=== PATIENT | female | born 1945 | race Hispanic/Latino ===

== ENCOUNTER 2018-10-12 15:29 | Emergency (ER) | payer MEDICARE ==
[~2018-10-12] VITALS: Ht 152.4 cm; Wt 78.9 kg
[2018-10-12 16:41] LABS: BASOPHILS % 0.3 % (0.0-1.0); EOSINOPHILS # (AUTO) 0.2 (0.0-0.4); EOSINOPHILS % 2.2 % (0.0-6.0); HEMATOCRIT 43.2 % (34.2-44.1); HEMOGLOBIN 14.5 g/dL (12.0-16.0); LYMPHOCYTES # (AUTO) 2.5 (1.0-3.2); LYMPHOCYTES % 26.7 % (18.0-39.1); MEAN CORPUSCULAR HEMOGLOBIN 29.7 pg (28-32); MEAN CORPUSCULAR HGB CONC 33.6 g/dL (31-35); MEAN CORPUSCULAR VOLUME 88.5 fL (81-99); MONOCYTES # (AUTO) 0.6 (0.2-0.8); MONOCYTES % 6.9 % (4.4-11.3); NEUTROPHILS # (AUTO) 5.9 (2.1-6.9); NEUTROPHILS % 63.6 % (38.7-80.0); PLATELET COUNT 349 x10e3/uL (140-360); RED BLOOD COUNT 4.88 x10e6/uL (3.6-5.1); RED CELL DISTRIBUTION WIDTH 13.6 % (11.7-14.4)
[2018-10-12 16:46] LABS: INR 1.03; PROTHROMBIN TIME 14.4 seconds (11.9-14.5)
[2018-10-12 16:47] LABS: PARTIAL THROMBOPLASTIN TIME 29.2 seconds (23.8-35.5)
--- NOTE | 2018-10-12 16:47 | Diagnostic Imaging Report ---
EXAMINATION: CHEST SINGLE (NOT PORTABLE) COMPARISON: None INDICATION: Chest pain, palpitations DISCUSSION: Frontal view of the chest obtained at 1627 hours. HEART AND MEDIASTINUM: The heart is normal in size. There is mild aortic ectasia LINES: None. LUNGS: Hyperlucency in the upper lung zones suggestive of emphysema. No pneumonia or pulmonary edema. PLEURA: No pleural effusion or pneumothorax. BONES AND SOFT TISSUES: No focal osseous lesion. The soft tissues are normal. Cholecystectomy clips are present in the right upper quadrant. IMPRESSION: Pulmonary hyperinflation suggestive of emphysema. No acute cardiopulmonary process. Signed by: Dr. Jordan Horton MD on 10/12/2018 4:44 PM
[2018-10-12 17:06] LABS: ALANINE AMINOTRANSFERASE 32 IU/L (0-55); ALBUMIN 4.3 g/dL (3.5-5.0); ALBUMIN/GLOBULIN RATIO 1.1 (0.8-2.0); ALKALINE PHOSPHATASE 61 IU/L (40-150); ANION GAP 18.7 mmol/L (8-16); BLOOD UREA NITROGEN 14 mg/dL (7-26); BUN/CREATININE RATIO 18 (6-25); CALCIUM 10.1 mg/dL (8.4-10.2); CARBON DIOXIDE 26 mmol/L (22-29); CHLORIDE 98 mmol/L (98-107); CREATINE KINASE 61 IU/L (29-168); EST GLOMERULAR FILTRATION RATE > 60 ML/MIN (60-); GLUCOSE 107 mg/dL (74-118); SODIUM 140 mmol/L (136-145)
[2018-10-12 17:07] LABS: POTASSIUM 2.7 mmol/L (3.5-5.1)
[2018-10-12] MEDS ORDERED: POTASSIUM CHLORIDE 20 MEQ TAB CR PO STA ×2 (19:00→20:01)
[2018-10-12 19:08] LABS: CLARITY,URINE HAZY (CLEAR); COLOR,URINE YELLOW (YELLOW); LEUKOCYTE ESTERASE ,URINE 1+ (NEGATIVE); NITRITE,URINE NEGATIVE (NEGATIVE); PROTEIN,URINE DIPSTICK NEGATIVE (NEGATIVE)
[2018-10-12 19:09] LABS: BILIRUBIN,URINE NEGATIVE (NEGATIVE); KETONES,URINE NEGATIVE (NEGATIVE); URINE UROBILINOGEN 0.2 mg/dL (0.2 - 1)
[2018-10-12 19:14] LABS: RBC,URINE 0-5 /HPF (0-5)
[2018-10-12 19:15] LABS: BACTERIA,URINE FEW /HPF; EPITHELIAL CELLS,URINE FEW /LPF
[2018-10-12 21:12] LABS: CREATINE KINASE MB 0.8 ng/mL (0-5.0)
== END 2018-10-12 22:24 | disposition home or self-care (01) ==
LOC: ER 15:29
DX: R00.2 Palpitations (principal); I10 Essential (primary) hypertension
CPT/HCPCS: 36415; 71045; 80053; 81001; 82550; 82553; 83735; 83880; 84484; 85025; 85610; 85730; 93005; 99284

== ENCOUNTER 2018-12-15 15:39 | Observation (INO) | payer MEDICARE ==
[~2018-12-15] VITALS: Ht 152.4 cm; Wt 78.9 kg
--- OUTSIDE RECORDS SUMMARY | 2018-12-15 15:42 | XMS REPORT ---
Author Author [facility] Address Unknown Phone Unavailable Care Team Providers Care Project Admin Name Role Phone Abhi SIDDIQUI Unavailable Unavailable Problems This patient has no known problems. Allergies, Adverse Reactions, Alerts This patient has no known allergies or adverse reactions. Medications This patient has no known medications. Results Test Description Test Time Test Comments Text Results Atomic Results Result Comments CHEST SINGLE (NOT PORTABLE) 2018-10-12 16:43:00 [place] [address] Patient Name: CLAUDIA BELTRÁN MR #: [id number] : 1945 Age/Sex: 72/F Req #: [id number] Adm Physician: Ordered by: ELISABETH SIDDIQUI MD Report #: [id number] Location: ER Room/Bed: Procedure: [id number] DX/CHEST SINGLE (NOT PORTABLE) Exam Date: 10/12/18 Exam Time: 1625 REPORT STATUS: Signed EXAMINATION: CHEST SINGLE (NOT PORTABLE) COMPARISON: None INDICATION: Chest pain, palpitations DISCUSSION: Frontal view of the chest obtained at 1627 hours. HEART AND MEDIASTINUM: The heart is normal in size. There is mild aortic ectasia LINES: None. LUNGS: Hyperlucency in the upper lung zones suggestive of emphysema. No pneumonia or pulmonary edema. PLEURA: No pleural effusion or pneumothorax. BONES AND SOFT TISSUES: No focal osseous lesion. The soft tissues are normal. Cholecystectomy clips are present in the right upper quadrant. IMPRESSION: Pulmonary hyperinflation suggestive of emphysema. No acute cardiopulmonary process. Signed by: Dr. Cy Horton MD on 10/12/2018 4:44 PM Dictated By: CY HORTON MD 43 Transcribed By: MICAH on 10/12/181643 COPY TO: ELISABETH SIDDIQUI MD
[2018-12-15 16:50] LABS: BILIRUBIN,URINE NEGATIVE (NEGATIVE); CLARITY,URINE CLEAR (CLEAR); COLOR,URINE YELLOW (YELLOW); KETONES,URINE NEGATIVE (NEGATIVE); LEUKOCYTE ESTERASE ,URINE NEGATIVE (NEGATIVE); NITRITE,URINE NEGATIVE (NEGATIVE); PROTEIN,URINE DIPSTICK NEGATIVE (NEGATIVE); URINE UROBILINOGEN 0.2 mg/dL (0.2 - 1)
--- NOTE | 2018-12-15 17:17 | Diagnostic Imaging Report ---
EXAMINATION: CHEST SINGLE (PORTABLE) COMPARISON: Chest x-ray 10/12/2018 INDICATION: Chest pain ^ERMD ORDER ^[id number] ^1650 ^Y DISCUSSION: Frontal view of the chest obtained at 1658 hours. HEART AND MEDIASTINUM: The cardiomediastinal silhouette is unremarkable. LINES: None. LUNGS: The lungs are well inflated and clear. No pneumonia or pulmonary edema. PLEURA: No pleural effusion or pneumothorax. BONES AND SOFT TISSUES: No focal osseous lesion. The soft tissues are normal. No free air below the diaphragm. IMPRESSION: No acute cardiopulmonary disease. Signed by: Dr. Jordan Horton MD on 12/15/2018 5:13 PM
--- NOTE | 2018-12-15 17:41 | Diagnostic Imaging Report ---
ADDENDUM #1 I have reviewed the images and agree with findings in preliminary report. Signed by: Dr. Kyung Martines M.D. on 12/15/2018 11:36 PM ORIGINAL REPORT Exam: Noncontrast head CT History:73-year-old female with dizziness, chest discomfort rating to her back and abdomen and headaches from yesterday Comparison studies: None Technique: Axial images were obtained from the skull base to the vertex. Coronal and sagittal images reconstructed from the axial data. Dose modulation, iterative reconstruction, and/or weight based adjustment of the mA/kV was utilized to reduce the radiation dose to as low as reasonably achievable. Intravenous contrast: None Findings: Scalp/skull: No abnormalities. Extra-axial spaces: No masses. No fluid collections. Brain sulci: Mildly prominent. Ventricles: Mild compensatory dilatation. No hydrocephalus. Parenchyma: Mild scattered hypodensities in the supratentorial white matter are small vessel ischemic changes. No masses, hemorrhage, acute or chronic cortical vascular insults. Sellar/suprasellar region: No abnormalities. Craniocervical junction: Patent foramen magnum. No Chiari one malformation. Incidental findings: Atherosclerotic calcifications in the carotid siphons . Impression: No acute abnormalities. Chronic findings: 1. Mild generalized volume loss. 2. Mild supratentorial white matter small vessel ischemic changes. This is a preliminary report was provided by the neuroradiology fellow. Attending over read to follow. Signed by: Crow Graham MD on 12/15/2018 5:38 PM
[2018-12-15 18:03] LABS: BASOPHILS % 0.4 % (0.0-1.0); EOSINOPHILS # (AUTO) 0.2 (0.0-0.4); EOSINOPHILS % 2.4 % (0.0-6.0); HEMATOCRIT 43.4 % (34.2-44.1); HEMOGLOBIN 14.6 g/dL (12.0-16.0); LYMPHOCYTES # (AUTO) 2.1 (1.0-3.2); LYMPHOCYTES % 25.1 % (18.0-39.1); MEAN CORPUSCULAR HEMOGLOBIN 29.6 pg (28-32); MEAN CORPUSCULAR HGB CONC 33.6 g/dL (31-35); MEAN CORPUSCULAR VOLUME 87.9 fL (81-99); MONOCYTES # (AUTO) 0.5 (0.2-0.8); MONOCYTES % 6.1 % (4.4-11.3); NEUTROPHILS # (AUTO) 5.5 (2.1-6.9); NEUTROPHILS % 65.5 % (38.7-80.0); PLATELET COUNT 336 x10e3/uL (140-360); RED BLOOD COUNT 4.94 x10e6/uL (3.6-5.1); RED CELL DISTRIBUTION WIDTH 13.6 % (11.7-14.4)
[2018-12-15 18:14] LABS: STREPTOCOCCUS GRP A ANTIGEN NEGATIVE (NEGATIVE)
[2018-12-15 18:19] LABS: INR 1.05; PROTHROMBIN TIME 14.2 seconds (11.9-14.5)
[2018-12-15 18:20] LABS: ALANINE AMINOTRANSFERASE 42 IU/L (0-55); ALBUMIN 4.5 g/dL (3.5-5.0); ALBUMIN/GLOBULIN RATIO 1.2 (0.8-2.0); ALKALINE PHOSPHATASE 67 IU/L (40-150); AMYLASE 61 U/L (25-125); ANION GAP 14.1 mmol/L (8-16); BLOOD UREA NITROGEN 12 mg/dL (7-26); BUN/CREATININE RATIO 17 (6-25); CALCIUM 10.3 mg/dL (8.4-10.2); CARBON DIOXIDE 29 mmol/L (22-29); CHLORIDE 99 mmol/L (98-107); CREATINE KINASE 55 IU/L (29-168); CREATININE, SERUM 0.71 mg/dL (0.57-1.11); EST GLOMERULAR FILTRATION RATE > 60 ML/MIN (60-); GLUCOSE 105 mg/dL (74-118); LIPASE 44 U/L (8-78); MAGNESIUM 1.8 MG/DL (1.3-2.1); PARTIAL THROMBOPLASTIN TIME 29.4 seconds (23.8-35.5); POTASSIUM 3.1 mmol/L (3.5-5.1); SODIUM 139 mmol/L (136-145)
[2018-12-15 18:22] LABS: INFLUENZAE A&B ANTIGEN (RAPID) NEGATIVE (NEGATIVE)
[2018-12-15] MEDS ORDERED: NITROGLYCERIN 0.4 MG SUBL SL PRN (19:15)
[2018-12-15] MEDS ORDERED: MORPHINE SULFATE 2 MG/ML SYR 1ML IV PRN (19:15)
[2018-12-15] MEDS ORDERED: MORPHINE SULFATE INJ 4 MG/ML INJ 1ML IV PRN (19:30)
[2018-12-15] MEDS ORDERED: POTASSIUM CHLORIDE 20 MEQ TAB CR PO ONE ×2 (19:30→19:58)
[2018-12-15] MEDS ORDERED: FAMOTIDINE 20 MG/2 ML VIAL IV ONE (19:59)
[2018-12-15] MEDS ORDERED: ONDANSETRON HCL INJ 2MG/ML 2ML 2 MG/ML VIAL ONE (19:59)
[2018-12-15] MEDS ORDERED: DILTIAZEM 24HR240 M1 PO (20:07)
[2018-12-15] MEDS ORDERED: ATORVASTATIN CA20 MG PO (20:07)
[2018-12-15] MEDS ORDERED: HYDROCHLOROTHIA25 MG PO (20:08)
[2018-12-15] MEDS ORDERED: SYNTHROID125 MCG PO (20:08)
[2018-12-15] MEDS ORDERED: METFORMIN HCL500 MG PO (20:08)
[2018-12-15] MEDS ORDERED: ASPIR 8181 MG PO (20:09)
[2018-12-15] MEDS: ONDANSETRON HCL INJ 2MG/ML 2ML 2 MG/ML VIAL IV PRN (20:11)
[2018-12-15] MEDS: FAMOTIDINE 20 MG/2 ML VIAL IV SCH (20:11)
[2018-12-15] MEDS ORDERED: DEXTROSE 50% SYRINGE 50 ML IV PRN (20:15)
[2018-12-15] MEDS ORDERED: ATORVASTATIN 10 MG TAB ONE (20:31)
[2018-12-15] MEDS ORDERED: DILTIAZEM HCL ER 120 MG CAPCR PO ONE (20:31)
[2018-12-15] MEDS: INSULIN REGULAR, HUMAN 100 UNIT/1 ML 3ML VIAL SQ SCH (20:33)
[2018-12-15] MEDS ORDERED: ATORVASTATIN 20 MG TAB PO SCH (21:00)
[2018-12-15] MEDS: DILTIAZEM HCL ER 120 MG CAPCR PO SCH (21:08)
[2018-12-15 22:45] VITALS: BP 169/79
[2018-12-15 23:00] VITALS: BP 110/65
[2018-12-16 01:29] LABS: CREATINE KINASE 45 IU/L (29-168)
[2018-12-16] MEDS: ONDANSETRON HCL INJ 2MG/ML 2ML 2 MG/ML VIAL IV PRN (03:19)
[2018-12-16 04:45] VITALS: BP 110/65
[2018-12-16 06:08] LABS: BASOPHILS % 0.4 % (0.0-1.0); EOSINOPHILS # (AUTO) 0.2 (0.0-0.4); EOSINOPHILS % 2.9 % (0.0-6.0); HEMOGLOBIN 12.8 g/dL (12.0-16.0); LYMPHOCYTES # (AUTO) 2.4 (1.0-3.2); LYMPHOCYTES % 32.4 % (18.0-39.1); MEAN CORPUSCULAR HEMOGLOBIN 29.7 pg (28-32); MEAN CORPUSCULAR HGB CONC 32.8 g/dL (31-35); MEAN CORPUSCULAR VOLUME 90.5 fL (81-99); MONOCYTES # (AUTO) 0.7 (0.2-0.8); MONOCYTES % 9.5 % (4.4-11.3); NEUTROPHILS # (AUTO) 4.1 (2.1-6.9); NEUTROPHILS % 54.4 % (38.7-80.0); PLATELET COUNT 283 x10e3/uL (140-360); RED BLOOD COUNT 4.31 x10e6/uL (3.6-5.1); RED CELL DISTRIBUTION WIDTH 13.6 % (11.7-14.4)
--- NOTE | 2018-12-16 06:50 | NUR ---
Walking rounds done. Patient is resting in bed in NAD. Patient denies and CP or dizziness at this time. POC discussed. Patient instructed to call for assistance as needed and verbalized understanding. Call chambers within reach.
[2018-12-16 07:05] LABS: ALANINE AMINOTRANSFERASE 33 IU/L (0-55); ALBUMIN 3.7 g/dL (3.5-5.0); ALBUMIN/GLOBULIN RATIO 1.2 (0.8-2.0); ALKALINE PHOSPHATASE 63 IU/L (40-150); ANION GAP 12.6 mmol/L (8-16); BLOOD UREA NITROGEN 18 mg/dL (7-26); BUN/CREATININE RATIO 24 (6-25); CALCIUM 9.5 mg/dL (8.4-10.2); CARBON DIOXIDE 28 mmol/L (22-29); CHLORIDE 100 mmol/L (98-107); CHOL/HDL RATIO 2.8 (3.0-3.6); CHOLESTEROL 119 MD/DL (0-199); CREATININE, SERUM 0.76 mg/dL (0.57-1.11); EST GLOMERULAR FILTRATION RATE > 60 ML/MIN (60-); GLUCOSE 115 mg/dL (74-118); HDL CHOLESTEROL 43 MG/DL (40-60); LDL CHOLESTEROL 36 MG/DL (60-130); POTASSIUM 3.6 mmol/L (3.5-5.1); SODIUM 137 mmol/L (136-145); TRIGLYCERIDES 198 MG/DL (0-149)
[2018-12-16] MEDS: INSULIN REGULAR, HUMAN 100 UNIT/1 ML 3ML VIAL SQ SCH (07:30)
[2018-12-16 08:58] VITALS: BP 146/65
[2018-12-16] MEDS ORDERED: ASPIRIN 81 MG ENTERIC COATED PO SCH ×2 (09:00→21:00)
[2018-12-16] MEDS: DILTIAZEM HCL ER 120 MG CAPCR PO SCH (09:35)
[2018-12-16] MEDS: FAMOTIDINE 20 MG/2 ML VIAL IV SCH (09:35)
--- NOTE | 2018-12-16 10:37 | NUR ---
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 CM/SW role and care transitions discussed. Anticipated discharge plan discussed along with duration of care. CM/SW discussed patients right to make decisions in care. CM/SW work hours given. Patient lives: HOUSE WITH FAMILY Admit/Transfer: VIA ED POA/Emergency contact: [phone] Current/Previous Home Health: NONE PCP/Follow-up Care: VINITA BURKS Current/Previous DME: NONE Other Services: NONE Employment Status: RETIRED Areas of Concerns: NONE Referral Needs: NONE Education Needs: NONE IMM/ADORNO given and signed (if applicable): UPON ADMISSION Goal for discharge: RETURN HOME CM/SW left business card at the bedside with contact information. Name and number was also written on the patients whiteboard. Patient verbalized understanding of discussion. CM will follow-up with ongoing discharge and transition of care needs.
[2018-12-16] MEDS ORDERED: INSULIN LISPRO 100 UNIT/1 ML 3ML VIAL SQ SCH (11:30)
[2018-12-16 12:08] VITALS: BP 150/67
--- NOTE | 2018-12-16 12:22 | NUR ---
Patient discharged home with written instructions. patient verbalized understanding. IV dc'd, cath intact and small dressing applied.
[2018-12-16 12:33] LABS: CREATINE KINASE MB 0.7 ng/mL (0-5.0)
== END 2018-12-16 12:24 | disposition home or self-care (01) ==
LOC: ER 15:39 → ERHOLD 19:47 → IMCU 22:40
PROVIDERS: ADMIT Internal Medicine; ATTEND Internal Medicine
DX: R07.89 Other chest pain (principal); I48.91 Unspecified atrial fibrillation; J45.909 Unspecified asthma, uncomplicated; E78.5 Hyperlipidemia, unspecified; K57.92 Diverticulitis of intestine, part unspecified, without perforation or abscess without bleeding; K21.9 Gastro-esophageal reflux disease without esophagitis; E11.42 Type 2 diabetes mellitus with diabetic polyneuropathy; E87.6 Hypokalemia; I10 Essential (primary) hypertension; Z79.84 Long term (current) use of oral hypoglycemic drugs
CPT/HCPCS: 36415; 70450; 71045; 80053 ×2; 80061; 81001; 82150; 82550 ×2; 82553 ×2; 82948; 83518; 83690; 83735; 84484 ×2; 85025 ×2; 85610; 85730; 87070; 87400; 93005; 99284; G0378 ×2; J2405 ×2

== ENCOUNTER 2022-08-24 21:27 | Observation (INO) | payer MEDICARE ==
[~2022-08-24] VITALS: Ht 149.9 cm; Wt 78.9 kg
[~2022-08-24 21:27] MED LIST: ASPIR 8181 MG PO; ATORVASTATIN CA20 MG PO; DILTIAZEM 24HR240 M1 PO; HYDROCHLOROTHIA25 MG PO; METFORMIN HCL500 MG PO; SYNTHROID125 MCG PO
[2022-08-24] MEDS ORDERED: ONDANSETRON HCL INJ 2MG/ML 2ML 2 MG/ML VIAL IV STA (22:31)
[2022-08-24] MEDS ORDERED: ASPIRIN 81 MG CHEW TAB PO ONE (22:45)
[2022-08-24] MEDS ORDERED: SODIUM CHLORIDE FLUSH 10 ML SYR IV PRN (22:45)
[2022-08-24] MEDS ORDERED: Morphine 4mg INJECTION 4 MG/ML INJ IV ONE (22:45)
[2022-08-24 22:57] LABS: BASOPHILS % 0.3 % (0.0-1.0); EOSINOPHILS % 0.1 % (0.0-6.0); HEMATOCRIT 42.5 % (34.2-44.1); HEMOGLOBIN 13.7 g/dL (12.0-16.0); LYMPHOCYTES # (AUTO) 1.9 (1.0-3.2); LYMPHOCYTES % 17.7 % (18.0-39.1); MEAN CORPUSCULAR HEMOGLOBIN 30.3 pg (28-32); MEAN CORPUSCULAR HGB CONC 32.2 g/dL (31-35); MONOCYTES # (AUTO) 0.6 (0.2-0.8); MONOCYTES % 6.1 % (4.4-11.3); NEUTROPHILS # (AUTO) 7.9 (2.1-6.9); NEUTROPHILS % 75.3 % (38.7-80.0); PLATELET COUNT 308 x10e3/uL (140-360); RED BLOOD COUNT 4.52 x10e6/uL (3.6-5.1); RED CELL DISTRIBUTION WIDTH 13.5 % (11.7-14.4)
[2022-08-24 23:13] LABS: ALBUMIN 4.4 g/dL (3.5-5.0); ALBUMIN/GLOBULIN RATIO 1.3 (0.8-2.0); ANION GAP 16.9 mmol/L (8-16); CALCIUM 10.1 mg/dL (8.4-10.2); CREATININE, SERUM 0.87 mg/dL (0.57-1.11); POTASSIUM 3.9 mmol/L (3.5-5.1)
[2022-08-25] MEDS ORDERED: ONDANSETRON HCL INJ 2MG/ML 2ML 2 MG/ML VIAL IV PRN (01:45)
[2022-08-25] MEDS ORDERED: SODIUM CHLORIDE FLUSH 10 ML SYR INJ PRN (01:45)
[2022-08-25] MEDS ORDERED: ASPIRIN 81 MG CHEW TAB PO ONE (01:45)
[2022-08-25 06:16] LABS: CREATINE KINASE MB 0.9 ng/mL (0-5.0)
[2022-08-25] MEDS ORDERED: ASPIRIN 325 MG TAB EC PO SCH (09:00)
[2022-08-25 09:03] VITALS: BP 155/67
[2022-08-25 09:11] VITALS: BP 155/67
[2022-08-25] MEDS ORDERED: ACETAMINOPHEN 325 MG TAB PO PRN (10:00)
[2022-08-25 11:06] VITALS: BP 155/67
[2022-08-25 11:11] VITALS: BP 135/58
[2022-08-25 12:23] VITALS: BP 135/58
[2022-08-25 15:03] VITALS: BP 164/74
[2022-08-25 15:05] LABS: CREATINE KINASE MB 0.8 ng/mL (0-5.0)
[2022-08-25] MEDS ORDERED: METFORMIN HCL 500 MG TAB PO SCH (17:00)
[2022-08-25] MEDS ORDERED: ATORVASTATIN 20 MG TAB PO SCH (21:00)
[2022-08-25] MEDS ORDERED: DILTIAZEM HCL ER 120 MG CAP PO SCH (21:00)
[2022-08-25] MEDS ORDERED: ASPIRIN 81 MG CHEW TAB PO SCH (21:00)
[2022-08-26] MEDS ORDERED: LEVOTHYROXINE SODIUM 125 MCG TAB PO SCH (06:30)
[2022-08-26] MEDS ORDERED: HYDROCHLOROTHIAZIDE 25 MG TAB PO SCH (09:00)
== END 2022-08-25 15:04 | disposition home or self-care (01) ==
LOC: ER 22:22 → ERHOLD 08-25 01:32 → MED/SURG 08-25 07:57
PROVIDERS: ADMIT Internal Medicine; ATTEND Internal Medicine
DX: R07.9 Chest pain, unspecified (principal); E11.42 Type 2 diabetes mellitus with diabetic polyneuropathy; I48.91 Unspecified atrial fibrillation; E03.9 Hypothyroidism, unspecified; K21.9 Gastro-esophageal reflux disease without esophagitis; E78.5 Hyperlipidemia, unspecified; I10 Essential (primary) hypertension; M06.9 Rheumatoid arthritis, unspecified; R42 Dizziness and giddiness; Z90.49 Acquired absence of other specified parts of digestive tract; Z83.3 Family history of diabetes mellitus; Z20.822 Contact with and (suspected) exposure to COVID-19; Z79.82 Long term (current) use of aspirin; Z79.84 Long term (current) use of oral hypoglycemic drugs
CPT/HCPCS: 36415 ×2; 71046; 80053; 82550; 82553; 83880; 84484 ×2; 85025; 93005; 94760; 99284; G0378; J2270; J2405; U0002